=== PATIENT | female | born 1995 | race Caucasian/White ===

== ENCOUNTER 2016-12-09 18:42 | Inpatient (IN) | payer BC, OTHER ==
[~2016-12-09] VITALS: Ht 170.2 cm; Wt 61.2 kg
--- NOTE | 2016-12-09 22:15 | NUR ---
PRE ADMISSION ASSESSMENT Patient seen in intake office. mild intoxication noted, vital signs within normal limits and patient noted to be in stable condition. Policies for medication disposal explained to patient and verbalization of understanding noted by patient. Will admit to unit.
--- NOTE | 2016-12-09 22:30 | NUR ---
ADMISSION NOTE: PATIENT IS A 21 YO FEMALE ADMITTED TO [facility] AT 2230 ON 12-09-16 PRE-ADMISSION ASSESSMENT COMPLETED WITH VS:138/63, 91, 96.3, 18, 98% SPO2 ON RA. CIWA IS 1 AND COWS IS A 1 PATIENT WITH MILD ANXIETY NO OTHER PHYSICAL COMPLAINTS, STATING SHE USED PRIOR TO COMING IN TODAY. HEIGHT IS 5'7 AND WEIGHT IS 135 LBS. PT REPORTS ALLERGY TO SULFA. PT DENIES HAVING A PCP. PT REPORTS THE FOLLOWING SUBSTANCE USE: HEROIN. CURRENTLY USING GRAM IV DAILY SINCE MAY/ PATIENT HAD A SIX MONTH SOBRIETY PRIOR TO THIS RELAPSE. PATIENT BEGAN USING 2 YEARS AGO. THIS IS HER 4TH ATTEMPT AT DETOX/REHAB. PATIENT REPORTS BEING [facility]" IN 2014, THEN A REHAB/DETOX IN [place] IN JUNE 2015, AND PROMISES IN OCTOBER 2015. PATIENT REPORTS SHE USED ONE XANAX PRIOR TO FLYING WHICH SHE STATES SHE GOT FROM A FRIEND. SHE DENIES BENZO USE ROUTINELY. PT REPORTS THAT SHE IS A NON-SMOKER, BUT FORMERLY SMOKED CIGARETTES APPROX 1 YEAR AGO. WRITTEN SMOKING CESSATION EDUCATION PROVIDED. PT VERBALIZES UNDERSTANDING. PT REPORTS PMHX OF ADHD, HEPATITIS C, HPV, AND GENITAL HERPES REPORTS BOYFRIEND DIAGNOSED WITH ENDOCARDITIS AND SHE SHARED NEEDLES WITH HIM. SHE IS NOW WORRIED ABOUT HAVING CONTRACTED THIS FROM HIM REPORTS LAST MENSTRUAL PERIOD IN MAY 2016. HCG NEGATIVE HOME MEDICATIONS RECONCILED. PT IS AMBULATORY WITH STEADY GAIT. PT IS A&OX4 COOPERATIVE AND IN NO PHYSICAL DISTRESS PT DENIES CURRENT OR PAST HISTORY OF SI/HI, AND REPORTS MOOD IS STABLE NOW. LUNGS ARE CTA THROUGHOUT, RESPIRATIONS ARE EVEN AND UNLABORED. PT DENIES COUGH. HEART SOUNDS REGULAR. BOWEL SOUNDS ACTIVE IN ALL QUADRANTS; PT REPORTS LAST BM ON 12-08-16. ABDOMEN IS SOFT, NON-DISTENDED, NON-TENDER.
[2016-12-09] MEDS ORDERED: BUPRENORPHINE HCL 2 MG TAB.SUBL SL PRN (23:15)
[2016-12-09] MEDS ORDERED: ONDANSETRON ODT 4 MG TAB.RAPDIS SL PRN (23:15)
[2016-12-09] MEDS ORDERED: LORAZEPAM 1 MG TABLET PO PRN ×2 (23:15)
[2016-12-09] MEDS ORDERED: ONDANSETRON 4 MG/2 ML VIAL IM PRN (23:15)
[2016-12-09] MEDS ORDERED: CLONIDINE HCL 0.1 MG TABLET PO PRN (23:15)
[2016-12-09] MEDS ORDERED: LOPERAMIDE HCL 2 MG CAPSULE PO PRN ×2 (23:15)
[2016-12-09] MEDS ORDERED: MAG HYDROX/AL HYDROX/SIMETH 30 ML LIQUID UDC PO PRN (23:15)
[2016-12-09] MEDS ORDERED: MIRALAX 17 GM POWD.PACK PO PRN (23:15)
[2016-12-09] MEDS ORDERED: LORAZEPAM 2 MG/1 ML VIAL IM PRN (23:15)
[2016-12-09 23:51] LABS: *AMPHETAMINE, URINE NEGATIVE (NEGATIVE); *BARBITURATE, URINE NEGATIVE (NEGATIVE); *CANNABINOID, URINE NEGATIVE (NEGATIVE); *COCCAINE, URINE NEGATIVE (NEGATIVE); *OPIATE, URINE POSITIVE (NEGATIVE); *PHENCYCLIDINE SCREEN,URINE NEGATIVE (NEGATIVE)
[2016-12-09 23:55] LABS: BASOPHILS # (AUTO) 0.1 K/uL (0.0-8.0); EOSINOPHILS # (AUTO) 0.3 K/uL (0.0-0.7); EOSINOPHILS % (AUTO) 4.1 % (0.0-7.0); HEMATOCRIT 39.8 % (37-47); HEMOGLOBIN 13.2 G/DL (12.0-16.0); LYMPHOCYTES # (AUTO) 3.6 K/UL (0.8-4.8); LYMPHOCYTES % (AUTO) 47.5 % (20.5-51.5); MEAN CORPUSCULAR HGB CONC 33 g/dL (32.0-37.0); MEAN CORPUSCULAR VOLUME 81.5 FL (81.0-99.0); MONOCYTES # (AUTO) 0.8 K/UL (0.1-1.30); MONOCYTES % (AUTO) 11.1 % (0.0-11.0); NEUTROPHILS # (AUTO) 2.8 K/UL (1.8-8.9); NEUTROPHILS % (AUTO) 36.3 % (38.5-71.5); PLATELET COUNT (AUTO) 228 K/UL (150-450); RED BLOOD CELL COUNT(AUTO) 4.88 MIL/UL (4.2-5.4); WHITE BLOOD COUNT (AUTO) 7.6 K/UL (4.0-11.2)
[2016-12-10] VITALS (7 sets, daily range): BP systolic 96–141; BP diastolic 50–81
[2016-12-10 00:11] LABS: ALANINE AMINOTRANSFERASE 17 U/L (14-59); ALKALINE PHOSPHATASE 70 U/L (50-136); ASPARTATE AMINOTRANSFERASE 12 U/L (15-37); BILIRUBIN,TOTAL 0.3 mg/dL (0.2-1.0); CARBON DIOXIDE 33 mmol/L (21-32); CHLORIDE 103 mmol/L (98-107); CREATININE 0.8 mg/dL (0.6-1.3); GLUCOSE 87 mg/dL (74-106); POTASSIUM 4.1 mmol/L (3.5-5.1); TOTAL PROTEIN, SERUM 7.6 g/dL (6.4-8.2); UREA NITROGEN, BLOOD 11 mg/dL (7-18)
[2016-12-10 00:14] LABS: *URINE HCG, QUAL NEGATIVE (NEGATIVE)
[2016-12-10 00:27] LABS: ETHANOL < 3 MG/DL (0-0)
[2016-12-10] MEDS ORDERED: CLON0.1T PO (04:19)
--- NOTE | 2016-12-10 07:10 | NUR ---
END OF SHIFT NOTE : Pt is a 21 y/o female admitted to [facility] on 12/09/16 at 2230. Pt is admitted for Heroin dependence. PT also reports use of Xanax x 1 prior to boarding plane from [place]. Pt denies suicidal and homicidal ideations and has no history of suicidality or attempts. Reports history of ADHD not treated now. . Pt denies Chest Pain or SOB. Pt brought Clonidine which was ordered in September 2016 patient states this was given to her for withdrawal and she reports not taking this in at least two months. She denies taking any medications at home currently. She is allergic to Sulfa. She is A/Ox4 .Pt is Full Code, Regular Diet. No history of falls or seizures. Breathing is even and unlabored. Patient has both PRN Subutex and Lorazepam ordered with no prn meds given on this shift. V/S remain WNL last VS at 0400 BP 100/56, P 70, R 16, T 97.6, Spo2 97% RA. Breathing even and unlabored, lungs clear upon auscultation, abdomen soft and non-distended with last BM reported yesterday. Pt denies nausea, vomiting and diarrhea. LAST COWS 1 and CIWA 1 at 0400 , [id number], voided x1 , slept 6 hours. Safety measures in place : bed on lowest position with side rails x2 up for safety, call light within reach. Will continue to monitor. Endorsement given to oncoming shift.
--- NOTE | 2016-12-10 07:25 | NUR ---
Start of shift note SBAR report rcv'd. Pt was admitted for opiate dependence. Pt has a PMHx of HSV II, HPC, Hep X and ADHD. Pt is allergic to sulfa, is a full code and on a regular diet. Pt is on PRN mediation at this time to manage her s/s of withdrawal. At this time the pt is sleeping in her bed, pt has no complaints at this time. Bed is locked in a low position, call light within reach, side rails up x2, fall precautions in place. Will continue to monitor pt. All needs addressed at this time.
--- NOTE | 2016-12-10 08:00 | NUR ---
COWS deferred Pt states that she "just wants to sleep". Pt noted to have a BP of 96/50, encouraged pt to drink a bottle of water. Will continue to monitor pt. COWS deferred at this time.
[2016-12-10] MEDS: MULTIVITAMINS,THERAPEUTIC TABLET PO SCH (09:00)
[2016-12-10] MEDS ORDERED: TUBERCULIN,PURIF.PROT.DERIV. 5 TU/0.1 ML TEST ID ONE ×2 (09:00→15:00)
--- NOTE | 2016-12-10 12:45 | NUR ---
PRN administration Pt has a COWS of 12, administered PRN subutex per MD order. Will continue to monitor pt.
[2016-12-10] MEDS: BUPRENORPHINE HCL 2 MG TAB.SUBL SL SCH ×3 (13:00→21:03)
--- NOTE | 2016-12-10 13:11 | NUR ---
Reassessment Pt is sleeping soundly in her room. Will continue to monitor pt. PRN subutex was effective. Held scheduled 1300 dose of subutex d/t sedation.
[2016-12-10] MEDS ORDERED: HYDROXYZINE PAMOATE 25 MG CAPSULE PO PRN (15:00)
--- NOTE | 2016-12-10 15:05 | NUR ---
PRN administration Pt c/o chills and anxiety. Administered PRN vistaril per Dr Arevalo orders. Will continue to monitor pt.
--- NOTE | 2016-12-10 16:05 | NUR ---
Reassessment Pt states that she still has chills, however pt states that her anxiety is relived. Will administered subutex per MD order to relieve pt's s/s of withdrawal. Pt has a COWS of 9.
--- NOTE | 2016-12-10 18:10 | NUR ---
PRN administration Pt c/o headache 08/09, administered PRN tylenol. Educated pt about importance of food and fluid intake, pt requires further education. Will continue to monitor pt.
[2016-12-10] MEDS: ACETAMINOPHEN 325 MG TABLET PO PRN (18:12)
[2016-12-10] MEDS ORDERED: METHOCARBAMOL 750 MG TABLET PO PRN (18:45)
--- NOTE | 2016-12-10 18:52 | NUR ---
START OF SHIFT NOTE: Patient endorsed by day shift nurse in stable condition. Report received. Patient is a 21 year old female admitted to [facility] on 12/09/2016 for medically supervised withdrawal from Heroin continue 5 Day Subutex Taper with tolerated well without ASE. Patient remained compliant with treatment, medications and diet regime. Patient reports Allergy to Sulfa. Patient is on Full Code, Regular Diet, and Fall Precautions. Patient denies Seizures History. PMH: Anxiety, Depression, History of ADHD, Herpes (Genital), HPV, Hepatitis C, Substance abuse, Tobacco dependence. Substance Use: 'Heroin via IV 1/2 gram every day since May,. Last use 1/2 gram on 12/09/2016". Smoker of 1 pack per day. She has been to a multiple treatment programs in the past, " 2014: "[facility]"; June, - [place] "Detox/Rehab" , October, to December,: 90 day in "[facility]" program", with reported relapse soon after discharge. Upon endorsement, patient is in the room. Assessment done. Patient is alert and oriented x4. Speech is clear and soft. COWS 7. Patient presented with anxiety, agitation, nervousness, nasal stuffy, moist eyes, chills, body aches, diaphoresis, restless legs, insomnia, fatigue, and tremors that can be felt. Patient denies SI/HI. VSWNL. PERRLA, brisk capillary refill, administrative manager equal and strong. Respirations unlabored and even. Patient denies SOB and chest pain. Lungs Sounds are clear bilaterally. Bowel Sounds active in all x4 quadrants. Skin is intact, warm and dry to touch. Encourage fluids as tolerated. Encourage to attend activities group. All needs met. Safety measures on place. Call light within reach, bed in lowest position and locked, padded rails up bilaterally rails up bilaterally. Will continue to monitor closely.
--- NOTE | 2016-12-10 18:52 | NUR ---
End of shift note Pt was admitted for opiate dependence. Pt has a PMHx of HSV II, HPV and ADHD. Pt reports an allergy to sulfa. Pt is on a regular diet and a full code. Pt started a custom subutex taper. Pt is refusing to eat or drink adequate amounts of food and fluids, multiple attempts to encourage pt made by multiple staff members. Pt states that she just wants to stay in bed and states I just don't feel good. Dr Arevalo is aware. Pt drank 790ml of fluids and had 4 voids during the shift. Pt had multiple PRN medications to manage her s/s of withdrawal. Pt had a COWS of 9 at 1600. Will endorse SBAR endorsed to oncoming shift, all needs addressed at this time.
[2016-12-10] MEDS: TRAZODONE 50 MG TABLET PO PRN (21:07)
--- NOTE | 2016-12-10 21:07 | NUR ---
PRN TRAZODONE 50 MG 1 TAB PO ADMINISTRATION Patient was assessed. COWS 7. Patient presented with anxiety, agitation, nervousness, nasal stuffy, moist eyes, chills, body aches, diaphoresis, restless legs, insomnia, fatigue, and tremors that can be felt. Patient denies SI/HI. VSWNL. PRN Trazodone PO was discussed, and patient's educated for actions, side effects, and adverse reactions of Trazodone. Patient returned knowledge back by verbalized understanding. PRN Trazodone 50 mg 1 tab PO administrated with full glass of water as ordered. Patient tolerated well. All needs met. Safety measures on place. Call light within reach, bed in lowest position and locked, padded rails up bilaterally rails up bilaterally. Will continue to monitor closely.
--- NOTE | 2016-12-10 22:07 | NUR ---
RE-ASSESSMENT Patient is sleeping. Respirations even and unlabored. RR: 15. PRN Trazodone PO was effective. All needs met. Safety measures on place. Call light within reach, bed in lowest position and locked, padded rails up bilaterally rails up bilaterally. Will continue to monitor closely.
[2016-12-11] VITALS: BP 129/56
[2016-12-11 04:00] VITALS: BP 118/60
[2016-12-11 06:07] LABS: HEPATITIS B SURFACE AG Negative (Negative)
--- NOTE | 2016-12-11 07:09 | NUR ---
END OF SHIFT NOTE: Patient endorsed to day shift nurse in stable condition. Report given. Patient is a 21 year old female admitted to [facility] on 12/09/2016 for medically supervised withdrawal from Heroin continue 5 Day Subutex Taper with tolerated well without ASE. Patient remained compliant with treatment, medications and diet regime. Patient reports Allergy to Sulfa. Patient is on Full Code, Regular Diet, and Fall Precautions. Patient denies Seizures History. PMH: Anxiety, Depression, History of ADHD, Herpes (Genital), HPV, Hepatitis C, Substance abuse, Tobacco dependence. Last COWS 7, CIWA 4 at 0400. Patient presented with anxiety, agitation, nervousness, nasal stuffy, moist eyes, chills, body aches, diaphoresis, restless legs, insomnia, fatigue, and tremors that can be felt. Patient denies SI/HI. VSWNL. Respirations unlabored and even. Patient denies SOB and chest pain. Skin is intact, warm and dry to touch. PRN Trazodone PO administrated for insomnia and was effective. Patient slept 9 hours 30 minutes,, intake 651ml, voided x1. All needs met. Safety measures on place. Call light within reach, bed in lowest position and locked, padded rails up bilaterally. Addendum: 12/11/16 at 0712 by ANA ALONSO RN EXTRA "END OF SHIFT NOTE"
--- NOTE | 2016-12-11 08:00 | NUR ---
START OF SHIFT Rcvd endorsement from ongoing nurse, client is in room, a/o x4, she presents with depressed mood, flat affect, enlarged pupil and moist skin. she reports restless legs, sweat, cold/chills and decreased apetite. Educate client on sign and symptoms of withdrawal and medication available to manage it. Encouraged client to increase fluid intake to facilitate detox. Encourage client to attend group therapy for skills to maintain sobriety. Client is a 21 yo female admitted for withdrawal from heroin and sedative-hypnotics. She is on 4 day Subutex taper, tolerating well. Last COWS 7/CIWA 4 @ 0400. She reports allergies to Sulfa, full code, regular diet. PRN Trazodone for inability to sleep, she slept for 9 hour. Client denies a history of withdrawal-induced seizure. She is on seizure precautions. Call light within reach. Side rails up x2/padded, bed locked and in low position.
[2016-12-11 08:08] VITALS: BP_SYST 131; BP_DIAS 61; BP_DIAS 84
[2016-12-11] MEDS ORDERED: BUPRENORPHINE HCL 2 MG TAB.SUBL SL SCH (09:00)
[2016-12-11] MEDS: MULTIVITAMINS,THERAPEUTIC TABLET PO SCH (09:46)
[2016-12-11 12:00] VITALS: BP 120/68
--- NOTE | 2016-12-11 12:45 | NUR ---
Therapist prompted client to attend daily group sessions. Client stated: "I probably will not attend any groups until I am completely done with my detox."
[2016-12-11] MEDS: BUPRENORPHINE HCL 2 MG TAB.SUBL SL SCH ×2 (15:00→20:28)
--- NOTE | 2016-12-11 15:07 | NUR ---
Client refused Subutex 2mg, risk/benefits discuss, but client still decline medication. Last COWS 7. and C.Juan. notified. Will continue to monitor.
--- NOTE | 2016-12-11 15:56 | NUR ---
Per Dr. Arevalo to continue PRN lorazepam and will be discontinue after three consecutive CIWA measurements </=5, Ativan 1 mg PO q2h PRN CIWA 8-14, Ativan 2 mg PO q2h PRN CIWA 15+ and notify
[2016-12-11] MEDS ORDERED: LORAZEPAM 1 MG TABLET PO PRN ×2 (16:00)
[2016-12-11 16:57] VITALS: BP 131/84
--- NOTE | 2016-12-11 19:15 | NUR ---
START OF SHIFT NOTE: Patient endorsed by day shift nurse in stable condition. Report received. Patient is a 21 year old female admitted to [facility] on 12/09/2016 for medically supervised withdrawal from Heroin continue 5 Day Subutex Taper with tolerated well without ASE. Patient reports Allergy to Sulfa. Patient is on Full Code, Regular Diet, and Fall Precautions. Patient denies Seizures History. Upon endorsement, patient is in the room. Assessment done. Patient is alert and oriented x4. Speech is clear and soft. COWS 7. Patient presented with anxiety, agitation, nervousness, nasal stuffy, moist eyes, chills, body aches, diaphoresis, restless legs, insomnia, fatigue, and tremors that can be felt. Patient denies SI/HI. VSWNL. PERRLA, brisk capillary refill, jelly maker equal and strong. Respirations unlabored and even. Patient denies SOB and chest pain. Lungs Sounds are clear bilaterally. Bowel Sounds active in all x4 quadrants. Skin is intact, warm and dry to touch. Encourage fluids as tolerated. Encourage to attend activities group. All needs met. Safety measures on place. Call light within reach, bed in lowest position and locked, padded rails up bilaterally rails up bilaterally. Will continue to monitor closely.
--- NOTE | 2016-12-11 19:15 | NUR ---
END OF SHIFT Client is a 21 yo female admitted withdrawal from prescription heroin and sedative-hypnotics. Client continues on Subutex taper, (day 2) and PRN Ativan and will be discontinue after three consecutive CIWA measurements </=5, Ativan 1 mg PO q2h PRN CIWA 8-14, Ativan 2 mg PO q2h PRN CIWA 15+ and notify MD. She refused her 1500 Subutex taper, MD notified. Client was not compliant with group therapy d/t withdrawal symptoms. Adequate PO intake, void x 3, stool x 1. Safety measures in place, call light within reach, side rails up x2/padded, bed locked and in low position. Endorsed to incoming nurse. Addendum: 12/11/16 at 1919 by CHIDI ROBLES RN Please disregard the word prescription after withdrawal from
[2016-12-11 20:00] VITALS: BP 119/59
[2016-12-11] MEDS: TRAZODONE 50 MG TABLET PO PRN (20:28)
--- NOTE | 2016-12-11 20:28 | NUR ---
PRN TRAZODONE 50 MG 1 TAB PO ADMINISTRATION Patient was assessed. VS WNL. Patient denies SI/HI. PRN Trazodone PO was discussed, and patient's educated for actions, side effects, and adverse reactions of Trazodone. Patient returned knowledge back by verbalized understanding. PRN Trazodone 50 mg 1 tab PO administrated with full glass of water as ordered. Patient tolerated well. All needs met. Safety measures on place. Call light within reach, bed in lowest position and locked, padded rails up bilaterally rails up bilaterally. Will continue to monitor closely.
--- NOTE | 2016-12-11 20:28 | NUR ---
PATIENT REFUSED ORDERED SUBUTEX. Patient refused ordered Subutex 2mg 1 tab SL. Risk and benefits discussed with patient, but patient still decline medication. Last COWS 7. MD and Charge Nurse notified. All needs met. Safety measures on place. Call light within reach, bed in lowest position and locked, padded rails up bilaterally rails up bilaterally. Will continue to monitor closely.
[2016-12-12] VITALS: BP 104/53
[2016-12-12 04:00] VITALS: BP 124/70
--- NOTE | 2016-12-12 06:47 | NUR ---
END OF SHIFT NOTE: Patient endorsed to day shift nurse in stable condition. Report given. Patient is a 21 year old female admitted to [facility] on 12/09/2016 for medically supervised withdrawal from Heroin continue 5 Day Subutex Taper with tolerated well without ASE. Patient remained compliant with treatment, medications and diet regime. Patient reports Allergy to Sulfa. Patient is on Full Code, Regular Diet, and Fall Precautions. Patient denies Seizures History. PMH: Anxiety, Depression, History of ADHD, Herpes (Genital), HPV, Hepatitis C, Substance abuse, Tobacco dependence. Last COWS 4, CIWA 3 at 0400. Patient presented with anxiety, agitation, nervousness, nasal stuffy, moist eyes, chills, body aches, diaphoresis, restless legs, insomnia, fatigue, and tremors that can be felt. Patient denies SI/HI. VSWNL. Respirations unlabored and even. Patient denies SOB and chest pain. Skin is intact, warm and dry to touch. PRN Trazodone PO administrated for insomnia and was effective. Patient slept 9 hours 45 minutes,, intake 796 ml, voided x3, stoolx1. All needs met. Safety measures on place. Call light within reach, bed in lowest position and locked, padded rails up bilaterally.
--- NOTE | 2016-12-12 08:00 | NUR ---
START OF SHIFT Rcvd endorsement from ongoing nurse, client is in room, a/o x4, she presents with depressed mood, flat affect, and moist skin. she reports restless legs and chills. Encouraged client to increase fluid intake to facilitate detox. Encourage client to attend group therapy for skills to maintain sobriety. Client is a 21 yo female admitted for withdrawal from heroin and sedative-hypnotics. She is on 4 day Subutex taper, tolerating well. Last COWS 4/CIWA 3 @ 0400. She reports allergies to Sulfa, full code, regular diet. She had an uneventful night, she slept for 9 hour. Client denies a history of withdrawal-induced seizure. She is on seizure precautions. Call light within reach. Side rails up x2/padded, bed locked and in low position.
[2016-12-12 08:18] VITALS: BP 117/75
[2016-12-12] MEDS: MULTIVITAMINS,THERAPEUTIC TABLET PO SCH (08:39)
[2016-12-12] MEDS: BUPRENORPHINE HCL 2 MG TAB.SUBL SL SCH ×3 (08:39→21:00)
--- NOTE | 2016-12-12 08:40 | NUR ---
Client refused Subutex 2mg, risk/benefits discuss, but client still decline medication. Last COWS 6. and C.Juan. notified. Will continue to monitor.
[2016-12-12 12:00] VITALS: BP 104/54
--- NOTE | 2016-12-12 14:55 | NUR ---
Client refused Subutex 2mg, risk/benefits discuss, but client still decline medication. Last COWS 5. and C.Juan. notified. Will continue to monitor.
--- NOTE | 2016-12-12 15:06 | NUR ---
Zero induration noted at TB site on L forearm
[2016-12-12 16:00] VITALS: BP 115/67
--- NOTE | 2016-12-12 19:15 | NUR ---
END OF SHIFT Client is a 21 yo female admitted withdrawal from heroin and sedative-hypnotics. Client continues on Subutex taper, (day 2). She refused her 0900 & 1500 Subutex taper, MD notified. Client was not compliant with group therapy. Adequate PO intake, void x 3, stool x 1. Safety measures in place, call light within reach, side rails up x2/padded, bed locked and in low position. Endorsed to incoming nurse.
--- NOTE | 2016-12-12 19:15 | NUR ---
START OF SHIFT NOTE Patient endorsed in stable condition. Report received. Patient is a 21 year old female admitted to [facility] on 12/09/2016 for Heroin dependence. She is on a 5 Day Subutex Taper but has refused Subutex today. MD aware. She states having no active withdrawal symptoms. Last COWS 5 CIWA 3. Patient is on Full Code, Regular Diet, and Fall Precautions. Patient currently resting in bed. States she is trying to get as much rest as possible before going to rehab. Patient is alert and oriented x4. Patient denies SI/HI, denies depression and reports mild anxiety. PERRLA, VSS, Respirations unlabored and even. Patient denies SOB or chest pain. Skin is intact, warm and dry to touch. Safety measures in place. Call light within reach, bed in lowest position and locked, side rails up bilaterally. Will continue to monitor.
[2016-12-12] MEDS: IBUPROFEN 600 MG TABLET PO PRN (19:59)
--- NOTE | 2016-12-12 19:59 | NUR ---
PRN MEDICATION Motrin 600 mg PO PRN given for C/O headache 5 out of 10 at 1958 Effectiveness pending.
[2016-12-12 20:00] VITALS: BP 112/71
--- NOTE | 2016-12-12 21:00 | NUR ---
Reassessment of patient Reassessment of patient one hour after Motrin 600 mg PO PRN given for Headache. Patient reports feeling much better states Headache reduced to a 1 out of 10 on pain scale.
[2016-12-12] MEDS: TRAZODONE 50 MG TABLET PO PRN (21:05)
--- NOTE | 2016-12-12 21:06 | NUR ---
PRN Medication Trazodone 50 mg PO given for C/O insomnia. Effect pending.
--- NOTE | 2016-12-12 21:10 | NUR ---
refusal of medication Patient refused Subutex at 2100. Patient COWS 1. Denies withdrawal symptoms, and states she does not want any Subutex. Vital signs BP 112/71, P 64, R 16, Spo2 97%.
--- NOTE | 2016-12-12 22:06 | NUR ---
REASSESSMENT OF PRN MEDICATION Reassessment of patient 1 hour after patient given Trazodone 50 mg PO for insomnia. Patient currently resting comfortably in bed, with eyes closed.
--- NOTE | 2016-12-13 | NUR ---
COWS/CIWA DEFERRED/ REFUSAL OF VITAL SIGNS PATIENT REFUSED 0000 VITAL SIGNS, STATES "i REALLY NEED TO SLEEP" COWS/CIWA DEFERRED DUE TO SLEEP. PATIENT RESTING COMFORTABLY IN BED WITH NO PHYSICAL OR EMOTIONAL COMPLAINTS.
--- NOTE | 2016-12-13 04:00 | NUR ---
COWS/CIWA DEFERRED/ REFUSAL OF VITAL SIGNS PATIENT REFUSED 0400 VITAL SIGNS, STATES "I REALLY JUST NEED TO SLEEP" COWS/CIWA DEFERRED DUE TO SLEEP. PATIENT RESTING COMFORTABLY IN BED WITH NO PHYSICAL OR EMOTIONAL COMPLAINTS.
--- NOTE | 2016-12-13 07:00 | NUR ---
END OF SHIFT NOTE : Pt is a 21 y/o female admitted to [facility] on 12/09/16 for Heroin dependence. She also reported use of Xanax x 1 prior to arrival (for help with flying. Pt mood is mildly anxious. Pt denies Chest Pain or SOB. Patients last vital signs were BP 112/71, P 64, R 16, T 97.7, O2 sat.97% on RA. She is allergic to Sulfa., is a full code and on a regular diet. She is A/Ox4 .Pt has no history of falls or seizures. Patient was placed on a subutex taper but refused all doses on 12-12-16. Risks as well as benefits of medication discussed, patient was educated, and verbalized understanding. She continues to refuse with last COWS of a 1 with only mild anxiety noted. Patient received prn Motrin at 1999 for c/o Headache of a 5 out of 10 with noted effectiveness. She also received PRN Trazodone 50 mg for c/o insomnia at 2105 with good effect and ability to fall asleep noted. [id number]=386 ml, voided x1 , slept 10 hours[address] Safety measures in place : bed on lowest position with side rails x2 up for safety, call light within reach. Will continue to monitor. Endorsement given to oncoming shift.
--- NOTE | 2016-12-13 07:30 | NUR ---
Start of shift note; Received report from night nurse. Patient is a 21 year old female on 12/09/16 for Opiate withdrawals. Patient was placed on a 4 day Subutex taper, no adverse reactions noted. Patient reported history of herpes, HPV, Hepatitis C and ADHD. Patient is allergic to Sulfa medications. Patient is on full code status, regular diet. Patient is on fall and seizure precaution. Bed in lowest position, call light within reach. Will continue to monitor patient.
[2016-12-13 08:00] VITALS: BP 114/66
[2016-12-13] MEDS: MULTIVITAMINS,THERAPEUTIC TABLET PO SCH (09:00)
[2016-12-13] MEDS ORDERED: BUPRENORPHINE HCL 2 MG TAB.SUBL SL SCH (09:00)
--- NOTE | 2016-12-13 09:00 | NUR ---
Medication refusal; Patient refused to take due medications. Notified MD regarding medication refusal.
[2016-12-13] MEDS ORDERED: IBUP-1955 PO (10:05)
[2016-12-13] MEDS ORDERED: METH-406 PO (10:05)
[2016-12-13] MEDS ORDERED: TRAZ-144 PO (10:05)
[2016-12-13] MEDS ORDERED: HYDR-3895 PO (10:05)
--- NOTE | 2016-12-13 11:05 | NUR ---
Therapist prompted client about group times. Client stated "I'm not going to groups today because I am leaving today."
[2016-12-13 12:00] VITALS: BP 126/78
[2016-12-13 16:00] VITALS: BP 113/65
[2016-12-13 16:58] LABS: *AMPHETAMINE, URINE NEGATIVE (NEGATIVE); *BARBITURATE, URINE NEGATIVE (NEGATIVE); *CANNABINOID, URINE NEGATIVE (NEGATIVE); *COCCAINE, URINE NEGATIVE (NEGATIVE); *OPIATE, URINE POSITIVE (NEGATIVE); *PHENCYCLIDINE SCREEN,URINE NEGATIVE (NEGATIVE)
[2016-12-13] MEDS: IBUPROFEN 600 MG TABLET PO PRN (17:14)
--- NOTE | 2016-12-13 17:14 | NUR ---
PRN medication; Patient is complaining of headache/pain rated 6/10, PRN Motrin 600mg PO given per MD order. Will continue to monitor patient.
--- NOTE | 2016-12-13 18:14 | NUR ---
Re-assessment; Patient is AOX4. Patient denies pain/headache at this time. PRN medication is effective.
--- NOTE | 2016-12-13 18:35 | NUR ---
End of shift note; Patient is AOX4. Patient is a 21 year old female on 12/09/16 for Opiate withdrawals. Patient was placed on a 4 day Subutex taper, no adverse reactions noted. Patient reported history of herpes, HPV, Hepatitis C and ADHD. Patient is allergic to Sulfa medications. Patient is on full code status, regular diet. Patient is on fall and seizure precaution. Patient is medically cleared for discharge tomorrow. All safety measures secured. Met all needs.
[2016-12-13] MEDS: ACETAMINOPHEN 325 MG TABLET PO PRN (19:41)
--- NOTE | 2016-12-13 19:42 | NUR ---
PRN Tylenol administration Pt c/o headache 09/08. PRN Tylenol administered.
--- NOTE | 2016-12-13 19:50 | NUR ---
START OF SHIFT Received report from day shift nurse. Pt is lying in bed watching TV. She is a 21 yo female admitted to [facility] on 12/09 for opiate dependence. She is A&O x4 and ambulatory. Allergic to sulfa, full code status, and on a regular diet. Pt has a PMH of Hepatits C, herpes, HPV and ADHD. On admission she admitted to using heroin 0.5-1 grams per day and alprazolam intermittently. Pt completed a 4 day Subutex taper and is scheduled for discharge tomorrow. She reports having a headache. Minimal other s/s of withdrawal. Pt verbalizes that she is ready for the next step in her recovery. Provided support. Fall precautions in place. Bed is down with call light in reach.
[2016-12-13 20:00] VITALS: BP 126/72
--- NOTE | 2016-12-13 20:42 | NUR ---
PRN Tylenol reassessment PRN Tylenol effective. Pt reports headache is relieved.
--- NOTE | 2016-12-13 20:55 | NUR ---
PRN Robaxin administration Pt c/o low back pain 12/09. PRN Robaxin administered. Addendum: 12/14/16 at 0128 by SUHA CLEMENTS RN Documentation done on incorrect pt.
--- NOTE | 2016-12-13 21:55 | NUR ---
JAMILA Robaxin reassessment PRN Robaxin effective at reducing pt's pain level to 4/10. Addendum: 12/14/16 at 0128 by SUHA CLEMENTS RN Documentation done on incorrect pt.
[2016-12-14] VITALS: BP 111/51
--- NOTE | 2016-12-14 | NUR ---
0000 COWS and CIWA deferred COWS and CIWA ordered Q4HWA. Pt is lying in bed resting with eyes closed. Vital signs obtained. Safety measures in place.
--- NOTE | 2016-12-14 04:00 | NUR ---
0400 Vitals refused/COWS and CIWA deferred Pt refused to be woken for 0400 vitals. She is lying in bed resting with eyes closed. Respirations even and unlabored. COWS and CIWA ordered Q4HWA. Safety measures in place.
--- NOTE | 2016-12-14 07:16 | NUR ---
END OF SHIFT Report provided to day shift nurse. Pt is lying in bed resting. She is a 21 yo female admitted to [facility] on 12/09 for opiate dependence. She is A&O x4 and ambulatory. Allergic to sulfa, full code status, and on a regular diet. Pt has a PMH of Hepatitis C, herpes, HPV and ADHD. On admission she admitted to using heroin 0.5-1 grams per day and alprazolam intermittently. 4 day Subutex taper ended and she is scheduled for discharge today. PRN Tylenol administered for headache. Last COWS 1 and CIWA 2 before bed. She drank 591mL and slept for 7 hours[address] Fall precautions in place. Bed is down with call light in reach.
--- NOTE | 2016-12-14 07:26 | NUR ---
Start of shift note; Received report from night nurse. Patient is a 21 year old female on 12/09/16 for Opiate withdrawals. Patient was placed on a 4 day Subutex taper, no adverse reactions noted. Patient reported history of herpes, HPV, Hepatitis C and ADHD. Patient is allergic to Sulfa medications. Patient is on full code status, regular diet. Patient is on fall and seizure precaution. Patient is medically cleared for discharge today. Bed in lowest position, call light within reach. Will continue to monitor patient.
[2016-12-14 08:00] VITALS: BP 110/77
[2016-12-14] MEDS: MULTIVITAMINS,THERAPEUTIC TABLET PO SCH (08:25)
--- NOTE | 2016-12-14 09:22 | NUR ---
Discharge note; Patient is AOX4. Patient is medically cleared for discharge. All valuables,belongings, prescriptions and medications given to patient. Patient left the hospital at exactly 0922 on 12/14/16. Patient completed treatment without any adverse reactions. Met all needs.
== END 2016-12-14 09:22 | disposition other institution (70) | DRG 895 ==
LOC: SRC 21:37
PROVIDERS: ADMIT Internal Medicine; ATTEND Internal Medicine
PROC: HZ2ZZZZ Detoxification Services for Substance Abuse Treatment (ICD-10-PCS; principal; 2016-12-09)
PROC: HZ31ZZZ Individual Counseling for Substance Abuse Treatment, Behavioral (ICD-10-PCS; 2016-12-11)
PROC: HZ41ZZZ Group Counseling for Substance Abuse Treatment, Behavioral (ICD-10-PCS; 2016-12-13)
DX: F11.23 Opioid dependence with withdrawal (principal); E87.3 Alkalosis; E86.0 Dehydration; B19.20 Unspecified viral hepatitis C without hepatic coma; F90.9 Attention-deficit hyperactivity disorder, unspecified type; Z88.2 Allergy status to sulfonamides; A60.00 Herpesviral infection of urogenital system, unspecified; Z86.19 Personal history of other infectious and parasitic diseases; F17.211 Nicotine dependence, cigarettes, in remission; F13.230 Sedative, hypnotic or anxiolytic dependence with withdrawal, uncomplicated
CPT/HCPCS: 36415; 70030-TC; 80307; 80346; 80361; 83735; 84703; 85025; 86580; 86592; 86705; 86803; 87340; 87806; A4663; G0480